=== PATIENT | female | born 1970 | race Two or more races ===

== ENCOUNTER 2023-07-24 06:35 | Day surgery (SDC) | payer OTHER ==
[2023-07-24] MEDS ORDERED: OXYC1TAB9 PO (16:02)
== END 2023-07-24 18:00 | disposition home or self-care (01) ==
LOC: CIR.AMB 06:35
PROVIDERS: ATTEND Surgery
DX: K64.2 Third degree hemorrhoids (principal); K64.4 Residual hemorrhoidal skin tags; K64.8 Other hemorrhoids; K62.89 Other specified diseases of anus and rectum; K62.5 Hemorrhage of anus and rectum; K59.09 Other constipation; Z20.822 Contact with and (suspected) exposure to COVID-19; I10 Essential (primary) hypertension; Z88.0 Allergy status to penicillin